=== PATIENT | female | born 1955 | race Caucasian/White ===

== ENCOUNTER 2024-08-13 23:41 | Emergency (ER) | payer MEDICARE, SELFPAY ==
[2024-08-13 23:48] VITALS: BP 156/74
[2024-08-14 00:06] VITALS: BMI 30.1
--- NOTE | 2024-08-14 00:08 | ED.MUSCINJ ---
HPI-Injury
General
Chief Complaint: Fall
Source: patient
Exam Limitations: none
Time Seen by Provider: 08/13/24 23:56
Nursing documentation reviewed up to this point in time: agreed with
History of Present Illness-Injury
Initial Injury comments:
This a pleasant 69-year-old female that presents to the emergency department after tripping and falling. She was leaving a show and she tripped onto some uneven pavement. She did hit the front of her head. She denies loss of consciousness. She
denies being on a blood thinner. She does have mild pain in her left hand. Denies any wrist pain. She states that the pain is likely from breaking her fall. Family states that she had some confusion immediately following the incident. She had a
brief episode of nausea without vomiting.
Vital signs are stable. Patient not hypoxic
Nursing note reviewed. I agree with nursing documentation up to this point in time.
Home Meds and allergies reviewed.
NUMBER AND COMPLEXITY OF PROBLEMS ADDRESSED AT THE ENCOUNTER
� Chronic conditions affecting care: None
� Acute Exacerbation and/or Progression of Chronic Illness: None this is an acute traumatic event
� Differential Diagnosis includes: Subdural, subarachnoid, epidural, musculoskeletal pain
AMOUNT AND/OR COMPLEXITY OF DATA TO BE REVIEWED AND ANALYZED
I performed an independent evaluation of the following and my interpretation is:
EKG:
Pulse Ox: Not Hypoxic
Paper Cone Grader: Sinus Rhythm
CT:
X-rays: Proximal fourth metacarpal fracture
Ultrasound:
Laboratory Studies:
Review of other/old records:
Clinical information was obtained by an independent historian:
Prescriptions/Medications Considered but not given: None
Further testing considered but not performed:
RISK OF COMPLICATIONS AND/OR MORBIDITY OR MORTALITY OF PATIENT MANAGEMENT
Social determinants of health affecting care: Good Social Support, family at the bedside
Discussion with other providers:
Escalation of care including admission/observation vs risk of discharge considered:
Review of Systems
Review of Systems
Allergies reviewed?: Yes
Other source history: family
All Other Systems: ROS reviewed and negative except as documented in HPI and ROS
Constitutional: Reports no symptoms
EENT: Reports no symptoms
Respiratory: Reports no symptoms
Cardiac: Reports no symptoms
ABD/GI: Reports no symptoms
: Reports no symptoms
Musculoskeletal: Reports no symptoms
Skin: Reports no symptoms
Neurological: Reports no symptoms
Endocrine: Reports no symptoms
Hematologic/Lymphatic: Reports no symptoms
Psychiatric: Reports no symptoms
Phy Exam
General Physical Exam
General Presentation: well appearing and no apparent distress
General age: appears stated age
General Skin: warm
General Habitus: normal
General Mental: alert
General Hydration: appears well hydrated
Injury Course
Orders/Labs/Results
Orders:
Orders
08/14/[address] Cervical Spine W/o Iv Contr Urgent
Reason For Exam: fall head strike
CT Head W/o Iv Contrast Urgent
Reason For Exam: fall head strike
08/14/24 00:00
CR Hand - Left Min 3 Views Urgent
Reason For Exam: hand pain
MDM/Problems Addressed
Differential Diagnosis Includes:
Subdural, subarachnoid
Chronic conditions affecting care:
None
*Critical Care Note
Total Time (30-74mins, 75-104mins- exclusive of procedures): Not Applicable
Update Note
Update Note:
NONCONTRAST HEAD CT
IMPRESSION
No evidence of acute intracranial abnormality. No evidence of hemorrhage or mass.
Minor periventricular and subcortical regions of low attenuation likely representing chronic small vessel ischemic disease.
Ventricles and sulci are prominent compatible with mild atrophy.
Bones are unremarkable.
Sinuses are unremarkable.
NONCONTRAST CT CERVICAL SPINE:
IMPRESSION
No fractures. Multilevel mild retrolisthesis probably secondary to underlying degenerative changes, assuming no clinical signs and symptoms of ligamentous instability.
Paraspinous soft tissues are unremarkable.
Sclerotic focus in the T1 vertebral body possibly a bone island but indeterminate
ED Attending Note
-
Portions of this chart may have been created with voice recognition software.� Occasional wrong word or��sound alike� substitutions may have occurred due to the inherent limitations of voice recognition software.
Discharge Plan
Departure
Patient Disposition: Home (Routine Discharge)
Date of Disposition: 08/14/24
Time of Disposition: 01:24
Patient with high blood pressure during this ER visit?: Yes
Condition: Good
Discharge Problem:
Fall, Head injury, Fracture of hand
Instructions: Head Injury in Adults (DC), Preventing falls in adults, Minor Head Injury (DC), Hand Fracture ED, BLOOD PRESSURE
Referrals:
[facility] [Outside]
NONE,* [Family Provider] -
Tito Canchola MD [Active] -
Activity Restrictions/Additional Instructions:
It was a pleasure meeting you and taking part in your care. We hope for your continued healing and wellness.
Please read discharge instructions in their entirety. However, they are for general education and may not describe your exact diagnosis at discharge. Information on your ER visit and medical conditions were discussed with you along with appropriate
follow up information...
If indicated, please take your medications as instructed and indicated on discharge paperwork.
Please schedule a follow up appointment as directed. Call to schedule an appointment
Please return to the emergency department with ANY change in, persisting, or worsening of symptoms. If any of your symptoms do not improve, or persist, or become more severe within 6-12 hours, please return to the emergency department for further
care.
Please return to the emergency department if you develop a headache, neck pain/stiffness, fever greater than 100.4F, chest pain, shortness of breath, persistent nausea, vomiting, slurred speech, difficulty walking, numbness/tingling, weakness, signs
of infection or any other symptoms that are worrisome to you.
If you have any questions or concerns please do not hesitate to call the Hospital at or E-mail me directly at [email or web address]
Interventions
Interventions:
*Risk Screen - Suicide Last Done: 08/13/24 23:48
*General Assessment Last Done: 08/14/24 00:11
*Neglect/Abuse Screening Last Done: 08/13/24 23:48
*ED- Fall Risk Assessment Last Done: 08/14/24 00:11
*ED COVID-19 Vaccine History Last Done: 08/14/24 00:11
*Nursing Disposition Last Done: 08/14/24 01:31
ED-Musculoskeletal Assessment Last Done: 08/14/24 00:11
ED- Neurological Assessment Last Done: 08/14/24 00:11
ED-Skin Assessment Last Done: 08/14/24 00:11
Discharge Date and Time
Discharge Date/Time: 08/14/24 01:32
Print Language: OCCITAN
== END 2024-08-14 01:32 | disposition home or self-care (01) ==
LOC: EMR 23:41
PROVIDERS: EMERGENCY PHYSICIAN Student in an Organized Health Care Education/Training Program
DX: S09.90XA Unspecified injury of head, initial encounter (principal); S62.315A Displaced fracture of base of fourth metacarpal bone, left hand, initial encounter for closed fracture; W01.0XXA Fall on same level from slipping, tripping and stumbling without subsequent striking against object, initial encounter; R03.0 Elevated blood-pressure reading, without diagnosis of hypertension
CPT/HCPCS: 99285; 70450; 72125; 73130